=== PATIENT | female | born 1940 ===

== ENCOUNTER 2017-07-22 18:13 | Inpatient (IN) | payer MEDICARE ==
[2017-07-22 19:59] LABS: BASO # 0.1 K/uL (0.0-0.2); MONO # 0.7 K/uL (0.0-0.8)
[2017-07-22 20:02] LABS: ALB/GLOB RATIO 1.4 (1.0-2.1); ALKALINE PHOSPHATASE 62 U/L (38-126); ALT/SGPT 38 U/L (9-52); AST/SGOT 57 U/L (14-36); BILIRUBIN,TOTAL 1.2 mg/dl (0.2-1.3); BLOOD UREA NITROGEN 12 mg/dl (7-17); CALCIUM 9.6 mg/dL (8.4-10.2); CARBON DIOXIDE 26 mmol/L (22-30); CHLORIDE 103 mmol/L (98-107); GFR AFRICAN-AMERICAN > 60; GLUCOSE,RANDOM 102 mg/dL (65-105); SODIUM 141 mmol/l (132-148); TOTAL PROTEIN 7.1 G/DL (6.3-8.2)
[2017-07-22 20:10] LABS: PARTIAL THROMBOPLASTIN TIME 21.4 Seconds (25.6-37.1)
--- NOTE | 2017-07-22 20:10 | ED PDOC ---
Syncope/Near Syncope/Dizziness Time Seen by Provider: 07/22/17 18:22 Chief Complaint (Nursing): Rib Injury Chief Complaint (Provider): fall injury History Per: Patient History/Exam Limitations: no limitations Additional Complaint(s): 77yo F in ED for eval of fall injury-sustained this afternoon. states that while attempting to use her walker which was braced against a wall she fell onto her bottom and then sideways injury to right side of rib . pt does not know why she fell. denies dizziness, headache numbness or tingling in LE, naseuia vomiting head injury or known syncopal episode. 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 PMD: Babb Past Medical History Reviewed: Historical Data, Nursing Documentation, Vital Signs Vital Signs: Last Vital Signs Temp 98.2 F 07/22/17 18:16 Pulse 104 H 07/22/17 18:16 Resp 22 07/22/17 18:16 BP 146/90 07/22/17 18:16 Pulse Ox 99 07/22/17 18:16 - Family History Family History: States: No Known Family Hx - Immunization History Hx Tetanus Toxoid Vaccination: No Hx Influenza Vaccination: No Hx Pneumococcal Vaccination: No - Allergies Allergies/Adverse Reactions: Allergies Allergy/AdvReac Type Severity Reaction Status Date / Time No Known Allergies Allergy Verified 07/22/17 18:15 Review of Systems ROS Statement: Except As Marked, All Systems Reviewed And Found Negative Constitutional: Negative for: Fever, Chills Cardiovascular: Positive for: Other (rib pain). Negative for: Chest Pain, Palpitations Neurological: Negative for: Weakness, Numbness, Incoordination, Change in Speech , Confusion, Seizures, Altered Mental Status, Headache, Dizziness Physical Exam - Reviewed Nursing Documentation Reviewed: Yes Vital Signs Reviewed: Yes - Physical Exam Appears: Positive for: Non-toxic, No Acute Distress, Uncomfortable Head Exam: Positive for: ATRAUMATIC, NORMAL INSPECTION, NORMOCEPHALIC Skin: Positive for: Normal Color, Warm, DRY Eye Exam: Positive for: EOMI, Normal appearance, PERRL ENT: Positive for: Normal ENT Inspection Neck: Positive for: Normal, Painless ROM Cardiovascular/Chest: Positive for: Regular Rate, Rhythm, Other (rib pain with brusing to rib area on the lower right rib area. ) Respiratory: Positive for: CNT, Normal Breath Sounds Gastrointestinal/Abdominal: Positive for: Normal Exam, Bowel Sounds, Soft. Negative for: Tenderness Back: Positive for: Normal Inspection Extremity: Positive for: Normal ROM Neurologic/Psych: Positive for: Alert, substance abuse nurse II-XII (intact), Oriented - ECG O2 Sat by Pulse Oximetry: 99 - Progress ED Course And Treament: due to unknown cause of fall -pt will need CT scan of head and rib xray. pt given tordol for pain control. Orders Category Date Time Status HEAD W/O CONTRAST [CT] Stat CT 07/22/17 19:58 Ordered ELECTROCARDIOGRAM Stat Cardiology 07/22/17 18:47 Ordered CMP [COMP METABOLIC PANEL] Stat Chem 07/22/17 19:18 Received TROPONIN I Stat Chem 07/22/17 19:18 Received EKG-ED [EDNURTX] STAT ED Care 07/22/17 18:50 Active RIBS AND CHEST RT [RAD] Stat Exams 07/22/17 19:58 Ordered CBC (WITH DIFFERENTIAL) Stat PLACIDO 07/22/17 19:18 Received PARTIAL THROMBOPLASTIN TIME [COAG] Stat PLACIDO 07/22/17 19:18 Received PROTHROMBIN TIME [COAG] Stat PLACIDO 07/22/17 19:18 Received Ketorolac [Toradol] Med 07/22/17 19:32 Discontinued 30 mg .ROUTE .STK-MED ONE Ketorolac [Toradol] Med 07/22/17 18:46 Discontinued 30 mg IVP STAT STA Disposition - Clinical Impression Clinical Impression: Rib injury - Patient ED Disposition Is Patient to be Admitted: Transfer of Care - Disposition Disposition Time: 20:12 Condition: FAIR Patient Signed Over To: Suzette Coronado
[2017-07-22 20:12] LABS: HEMATOCRIT 41.9 % (34.0-47.0); MEAN CELL VOLUME 89.5 fl (81.0-99.0); POTASSIUM 4.8 MMOL/L (3.6-5.0); WHITE BLOOD COUNT 10.2 K/uL (4.8-10.8)
[2017-07-22 20:13] LABS: BASO % 1.1 % (0.0-2.0); EOS # 0.4 K/uL (0.0-0.7); EOS % 3.6 % (0.0-4.0); LYMPH # 2.4 K/uL (1.0-4.3); LYMPH % 23.8 % (20.0-40.0); MEAN CORPUSCULAR HGB CONC 33.5 g/dL (33.0-37.0); MONO % 7.2 % (0.0-10.0); NEUT # 6.6 K/uL (1.8-7.0); NEUT % 64.3 % (50.0-75.0); NRBC % 0.1 % (0.0-0.0)
--- NOTE | 2017-07-22 20:44 | ED PDOC ---
- Laboratory Results Result Diagrams: 07/22/17 19:18 07/22/17 19:18 - ECG ECG: Positive for: Viewed By Me (reviewed by ED attending) ECG Rhythm: Positive for: Sinus Rhythm O2 Sat by Pulse Oximetry: 99 - Other Rad chest right ribs X-Ray: Viewed By Me X-Ray Interpretation: no acute findings - Progress ED Course And Treament: Case endorsed to data analyst report writer from Olimpia TAYLOR pending labs, imaging EXAM: CT Head Without Intravenous Contrast EXAM DATE/TIME: 07/22/2017 7:58 PM CLINICAL HISTORY: 77 years old, female; Injury or trauma; Fall; Initial encounter; Concussion / head injury; Consciousness not specified; Injury details: Patient states; She fell today, she walks with a walker; Prior surgery; Surgery date: 6+ months; Surgery type: ? ? ? . No HX. Available; Additional info: Fall injury unkown cause TECHNIQUE: Axial computed tomography images of the head/brain without intravenous contrast. All CT scans at this facility use one or more dose reduction techniques, viz.: automated exposure control; ma/kV adjustment per patient size (including targeted exams where dose is matched to indication; i.e. head); or iterative reconstruction technique. Coronal and sagittal reformatted images were created and reviewed. COMPARISON: CT HEAD OR BRAIN W/O CONT 04/07/2014 1:14:14 PM. Report of the prior study is not available for review. FINDINGS: Brain: There is prominence of sulci gyri and ventricles. There is no midline shift. There is a cavum septum pellucidum.There is decreased attenuation in periventricular white matter. There is left cerebellar encephalomalacia. There are no focal masses. There are no focal hemorrhages. Graywhite differentiation is visualized. Ventricles: See above. Bones: There is an old left temporal craniectomy defect. There is been partial resection of the left temporal bone. Left middle ear and mastoid are surgically absent. Left inner ear structures are absent. Soft tissues: unremarkable Sinuses: There is no acute sinusitis. Ears and mastoids: Right middle ear and mastoid unremarkable. Left middle ear, mastoid and inner ear structures are surgically absent. Orbits: Orbital contents are unremarkable. IMPRESSION: Atrophy and small vessel disease, no bleed; postsurgical changes of partial left temporal bone resection, unchanged since the prior study EXAM: CT Chest Without Intravenous Contrast EXAM DATE/TIME: 07/22/2017 9:06 PM CLINICAL HISTORY: 77 years old, female; Injury or trauma; Fall; Initial encounter; Blunt trauma ( contusions or hematomas); Injury date: 07-22-2017; Injury details: Patient states; Fell while using her walker; Additional info: Fall, right rib pain TECHNIQUE: Axial computed tomography images of the chest without intravenous contrast. All CT scans at this facility use one or more dose reduction techniques, viz.: automated exposure control; ma/kV adjustment per patient size (including targeted exams where dose is matched to indication; i.e. head); or iterative reconstruction technique. Coronal and sagittal reformatted images were created and reviewed. COMPARISON: CR - RIBS AND CHEST RT 07/22/2017 8:27:34 PM FINDINGS: Artifacts: Motion artifact degrades image quality. Lungs and pleural spaces: Trachea and main bronchi are patent.There is no pneumothorax. Lungs are hyperinflated. There is dependent atelectasis. There is scarring at the lung bases. There is mild prominence of the left epicardial fat pad. There are no effusions. Heart: Heart size is normal. There are coronary artery calcifications.Aorta and main pulmonary artery are normal in caliber. There are calcifications in the aortic arch Mediastinum: There is no pneumomediastinum. The esophagus is unremarkable. There is a small hiatal hernia. There is no pathologic mediastinal adenopathy.Khadijah are not optimally evaluated without contrast material. Thyroid: Thyroid is not optimally demonstrated. Bones/joints: Bony structures are osteopenic. There degenerative changes in the spine. Motion limits evaluation of the ribs. There are no displaced rib fractures. There may be a nondisplaced anterior right ninth rib fracture. Soft tissues: unremarkable Upper abdomen: There are no acute abnormalities in the visualized portion of the abdomen. IMPRESSION: No acute intrathoracic injury; no acute displaced rib fracture seen; possible nondisplaced right ninth rib fracture Additional findings as described above. On re-eval, patient still with pain to right side of ribs. IV morphine ordered Case discussed with Marcelino Peter EXHIBITS COORDINATOR for placement in observation tele. Disposition - Clinical Impression Clinical Impression: Rib injury, Syncope - POA Present On Arrival: Falls Or Trauma - Disposition Disposition: Hospitalized as Observation Patient Disposition Time: 23:46 Condition: FAIR
--- NOTE | 2017-07-22 21:30 | CT ---
EXAM: CT Head Without Intravenous Contrast EXAM DATE/TIME: 07/22/2017 7:58 PM CLINICAL HISTORY: 77 years old, female; Injury or trauma; Fall; Initial encounter; Concussion / head injury; Consciousness not specified; Injury details: Patient states; She fell today, she walks with a walker; Prior surgery; Surgery date: 6+ months; Surgery type: ? ? ? . No HX. Available; Additional info: Fall injury unkown cause TECHNIQUE: Axial computed tomography images of the head/brain without intravenous contrast. All CT scans at this facility use one or more dose reduction techniques, viz.: automated exposure control; ma/kV adjustment per patient size (including targeted exams where dose is matched to indication; i.e. head); or iterative reconstruction technique. Coronal and sagittal reformatted images were created and reviewed. COMPARISON: CT HEAD OR BRAIN W/O CONT 04/07/2014 1:14:14 PM. Report of the prior study is not available for review. FINDINGS: Brain: There is prominence of sulci gyri and ventricles. There is no midline shift. There is a cavum septum pellucidum.There is decreased attenuation in periventricular white matter. There is left cerebellar encephalomalacia. There are no focal masses. There are no focal hemorrhages. Martinez-white differentiation is visualized. Ventricles: See above. Bones: There is an old left temporal craniectomy defect. There is been partial resection of the left temporal bone. Left middle ear and mastoid are surgically absent. Left inner ear structures are absent. Soft tissues: unremarkable Sinuses: There is no acute sinusitis. Ears and mastoids: Right middle ear and mastoid unremarkable. Left middle ear, mastoid and inner ear structures are surgically absent. Orbits: Orbital contents are unremarkable. IMPRESSION: Atrophy and small vessel disease, no bleed; postsurgical changes of partial left temporal bone resection, unchanged since the prior study
--- NOTE | 2017-07-22 23:28 | CT ---
EXAM: CT Chest Without Intravenous Contrast EXAM DATE/TIME: 07/22/2017 9:06 PM CLINICAL HISTORY: 77 years old, female; Injury or trauma; Fall; Initial encounter; Blunt trauma (contusions or hematomas); Injury date: 07-22-2017; Injury details: Patient states; Fell while using her walker; Additional info: Fall, right rib pain TECHNIQUE: Axial computed tomography images of the chest without intravenous contrast. All CT scans at this facility use one or more dose reduction techniques, viz.: automated exposure control; ma/kV adjustment per patient size (including targeted exams where dose is matched to indication; i.e. head); or iterative reconstruction technique. Coronal and sagittal reformatted images were created and reviewed. COMPARISON: CR - RIBS AND CHEST RT 07/22/2017 8:27:34 PM FINDINGS: Artifacts: Motion artifact degrades image quality. Lungs and pleural spaces: Trachea and main bronchi are patent.There is no pneumothorax. Lungs are hyperinflated. There is dependent atelectasis. There is scarring at the lung bases. There is mild prominence of the left epicardial fat pad. There are no effusions. Heart: Heart size is normal. There are coronary artery calcifications.Aorta and main pulmonary artery are normal in caliber. There are calcifications in the aortic arch Mediastinum: There is no pneumomediastinum. The esophagus is unremarkable. There is a small hiatal hernia. There is no pathologic mediastinal adenopathy.Khadijah are not optimally evaluated without contrast material. Thyroid: Thyroid is not optimally demonstrated. Bones/joints: Bony structures are osteopenic. There degenerative changes in the spine. Motion limits evaluation of the ribs. There are no displaced rib fractures. There may be a nondisplaced anterior right ninth rib fracture. Soft tissues: unremarkable Upper abdomen: There are no acute abnormalities in the visualized portion of the abdomen. IMPRESSION: No acute intrathoracic injury; no acute displaced rib fracture seen; possible nondisplaced right ninth rib fracture Additional findings as described above.
[2017-07-23] MEDS ORDERED: Levothyroxine 88 MCG TAB PO SCH (06:30)
[2017-07-23] MEDS ORDERED: Oxycodone/Acetaminophen 5/325 mg Tab PO PRN (08:02)
--- NOTE | 2017-07-23 08:05 | CP.PCM.HP ---
History of Present Illness - History of Present Illness History of Present Illness: pt admitted for syncope as pt was standing then fell w/o provokation. sustained r sided rib fx but no head injury. pt has h/o brain surgery and has some dysphagia r/t same. at present w/o complaints except r flank pain in area of rib fx. bw nad imaging noted. Present on Admission - Present on Admission Any Indicators Present on Admission: No Review of Systems - Genitourinary Genitourinary: As Per HPI, Flank Pain - Neurological Neurological: As Per HPI, Syncope Past Patient History - Past Medical History & Family History Past Medical History?: Yes - Past Social History Smoking Status: Never Smoked - CARDIAC Hx Cardiac Disorders: Yes Hx Hypercholesterolemia: Yes - PULMONARY Hx Respiratory Disorders: No - NEUROLOGICAL Hx Neurological Disorder: No - HEENT Hx Deafness: Yes (Left side) - RENAL Hx Chronic Kidney Disease: No - ENDOCRINE/METABOLIC Hx Endocrine Disorders: Yes Hx Hypothyroidism: Yes - HEMATOLOGICAL/ONCOLOGICAL Hx Blood Disorders: No Hx AIDS: No Hx Human Immunodeficiency Virus (HIV): No - INTEGUMENTARY Hx Dermatological Problems: No - MUSCULOSKELETAL/RHEUMATOLOGICAL Hx Musculoskeletal Disorders: Yes Hx Falls: Yes - GASTROINTESTINAL Hx Gastrointestinal Disorders: No - GENITOURINARY/GYNECOLOGICAL Hx Genitourinary Disorders: No - PSYCHIATRIC Hx Psychophysiologic Disorder: No Hx Substance Use: No - SURGICAL HISTORY Hx Surgeries: Yes Other/Comment: Brain tumor removal in 1985 - ANESTHESIA Hx Anesthesia: Yes Hx Anesthesia Reactions: No Hx Malignant Hyperthermia: No Meds Allergies/Adverse Reactions: Allergies Allergy/AdvReac Type Severity Reaction Status Date / Time banana Allergy RASH Verified 07/23/17 05:42 Penicillins Allergy RASH Verified 07/23/17 05:42 Physical Exam - Constitutional Appears: Well, Non-toxic, No Acute Distress - Head Exam Head Exam: ATRAUMATIC, NORMAL INSPECTION, NORMOCEPHALIC - Eye Exam Eye Exam: EOMI, Normal appearance, PERRL Pupil Exam: NORMAL ACCOMODATION, PERRL - ENT Exam ENT Exam: Mucous Membranes Moist, Normal Exam - Neck Exam Neck exam: Positive for: Normal Inspection - Respiratory Exam Respiratory Exam: Clear to Auscultation Bilateral, NORMAL BREATHING PATTERN - Cardiovascular Exam Cardiovascular Exam: REGULAR RHYTHM, RRR, +S1, +S2 - GI/Abdominal Exam GI & Abdominal Exam: Normal Bowel Sounds, Soft. absent: Tenderness - Extremities Exam Extremities exam: Positive for: full ROM, normal capillary refill, normal inspection, pedal pulses present - Back Exam Back exam: NORMAL INSPECTION - Neurological Exam Neurological exam: Alert, CN II-XII Intact, Normal Gait, Oriented x3, Reflexes Normal - Psychiatric Exam Psychiatric exam: Normal Affect, Normal Mood - Skin Skin Exam: Dry, Intact, Normal Color, Warm Results - Vital Signs Recent Vital Signs: Last Vital Signs Temp 97.5 F L 07/23/17 05:01 Pulse 78 07/23/17 05:01 Resp 20 07/23/17 05:01 BP 135/82 07/23/17 05:01 Pulse Ox 97 07/23/17 05:01 - Labs Result Diagrams: 07/22/17 19:18 07/22/17 19:18 Labs: Laboratory Results - last 24 hr 07/22/17 07/22/17 07/22/17 19:18 19:18 19:18 WBC 10.2 RBC 4.66 Hgb 14.0 Hct 41.9 MCV 89.5 MCH 30.0 MCHC 33.5 RDW 13.0 Plt Count 283 MPV 9.0 Neut % (Auto) 64.3 Lymph % (Auto) 23.8 Dent % (Auto) 7.2 Eos % (Auto) 3.6 Baso % (Auto) 1.1 Neut # 6.6 Lymph # 2.4 Dent # 0.7 Eos # 0.4 Baso # 0.1 PT 11.4 INR 1.1 APTT 21.4 L Sodium 141 Potassium 4.8 Chloride 103 Carbon Dioxide 26 Anion Gap 17 BUN 12 Creatinine 0.6 L Est GFR ( Amer) > 60 Est GFR (Non-Af Amer) > 60 Random Glucose 102 Calcium 9.6 Total Bilirubin 1.2 AST 57 H ALT 38 Alkaline Phosphatase 62 Total Creatine Kinase Troponin I < 0.0120 Total Protein 7.1 Albumin 4.2 Globulin 2.9 Albumin/Globulin Ratio 1.4 07/22/17 21:40 WBC RBC Hgb Hct MCV MCH MCHC RDW Plt Count MPV Neut % (Auto) Lymph % (Auto) Dent % (Auto) Eos % (Auto) Baso % (Auto) Neut # Lymph # Dent # Eos # Baso # PT INR APTT Sodium Potassium Chloride Carbon Dioxide Anion Gap BUN Creatinine Est GFR ( Amer) Est GFR (Non-Af Amer) Random Glucose Calcium Total Bilirubin AST ALT Alkaline Phosphatase Total Creatine Kinase 62 Troponin I Total Protein Albumin Globulin Albumin/Globulin Ratio Assessment & Plan (1) Rib fracture Assessment and Plan: pain control deep resps Status: Acute (2) DVT prophylaxis Assessment and Plan: scd nad ae hose ambulation no anticoag r/t fall risk Status: Acute (3) Syncope Assessment and Plan: cardio/neuro trops am labs pending all er labs na dimaging reveiwed tele obs Status: Acute Decision To Admit - Pt Status Changed To: Hospital Disposition Of: Observation - . Bed Request Type: Telemetry Admitting Physician: Roxane Conway
[2017-07-23 08:48] LABS: BASO # 0.1 K/uL (0.0-0.2); BASO % 1.1 % (0.0-2.0); EOS # 0.4 K/uL (0.0-0.7); EOS % 3.8 % (0.0-4.0); HEMATOCRIT 41.1 % (34.0-47.0); LYMPH # 2.7 K/uL (1.0-4.3); MEAN CELL VOLUME 88.5 fl (81.0-99.0); MEAN CORPUSCULAR HEMOGLOBIN 29.8 pg (27.0-31.0); MEAN CORPUSCULAR HGB CONC 33.7 g/dL (33.0-37.0); MEAN PLATELET VOLUME 7.7 fl (7.2-11.7); MONO # 0.8 K/uL (0.0-0.8); MONO % 8.5 % (0.0-10.0); NEUT # 5.4 K/uL (1.8-7.0); NEUT % 57.6 % (50.0-75.0); NRBC % 0.2 % (0.0-0.0); RED CELL DISTRIBUTION WIDTH 13.4 % (11.5-14.5); WHITE BLOOD COUNT 9.4 K/uL (4.8-10.8)
[2017-07-23 09:18] LABS: ALB/GLOB RATIO 1.5 (1.0-2.1); ALKALINE PHOSPHATASE 68 U/L (38-126); ALT/SGPT 33 U/L (9-52); AST/SGOT 29 U/L (14-36); BILIRUBIN,TOTAL 1.6 mg/dl (0.2-1.3); BLOOD UREA NITROGEN 12 mg/dl (7-17); CALCIUM 9.1 mg/dL (8.4-10.2); CARBON DIOXIDE 26 mmol/L (22-30); CHLORIDE 103 mmol/L (98-107); GFR AFRICAN-AMERICAN > 60; GLUCOSE,RANDOM 99 mg/dL (65-105); POTASSIUM 4.3 MMOL/L (3.6-5.0); SODIUM 142 mmol/l (132-148); TOTAL PROTEIN 6.5 G/DL (6.3-8.2)
[2017-07-23 09:45] LABS: THYROID STIMULATING HORMONE 0.44 mIU/ML (0.46-4.68)
--- NOTE | 2017-07-23 12:31 | RAD ---
PROCEDURE: Radiographs of the Chest and Right Ribs. HISTORY: rib injury fall COMPARISON: None available. TECHNIQUE: Frontal radiograph of the chest and multiple oblique radiographs of the right ribs were obtained. FINDINGS: RIGHT RIBS: No fracture or focal lesion visualized. LUNGS: The lungs are hyperinflated and there is peribronchial thickening with chronic changes in both lungs. PLEURA: No pneumothorax or pleural fluid. CARDIOVASCULAR: Normal sized heart. No pulmonary vascular congestion. OTHER FINDINGS: None. IMPRESSION: No acute rib fracture. Clear lungs.
--- NOTE | 2017-07-23 15:53 | US ---
PROCEDURE: Duplex ultrasound of the carotid and vertebral arteries. HISTORY: Syncope COMPARISON: None available. TECHNIQUE: Grayscale and duplex Doppler evaluation of the cervical carotid and vertebral arteries were performed. The common carotid, carotid bifurcations and cervical ICA and proximal ECA were evaluated. The vertebral arteries were evaluated for gross patency and direction. FINDINGS: There are calcified atherosclerotic plaques in the carotid bulbs. RIGHT CAROTID ARTERIES: Common Carotid Artery: Normal. Maximal flow velocity of 72.4 cm/s. Carotid Bifurcation: Normal. Internal Carotid Artery:Normal. Maximal flow velocity of 97.9 cm/s. External Carotid Artery (proximal branches): Normal. Maximal flow velocity of 64.0 cm/s. ICA/CCA Ratio: 1.4 LEFT CAROTID ARTERIES: Common Carotid Artery: Normal. Maximal flow velocity of 69.3 cm/s. Carotid Bifurcation: Normal. Internal Carotid Artery:Normal. Maximal flow velocity of 68.6 cm/s. External Carotid Artery (proximal branches): Normal. Maximal flow velocity of 77.0 cm/s. ICA/CCA Ratio: 1.0 VERTEBRAL ARTERIES: Right Vertebral Artery: Patent. Antegrade flow. Left Vertebral Artery: Patent. Antegrade flow. OTHER FINDINGS: None. IMPRESSION: No evidence of hemodynamically significant stenosis.
--- NOTE | 2017-07-23 16:53 | CON ---
NEUROLOGY CONSULT DATE: 07/23/2017 CHIEF COMPLAINT: Near syncope. 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 She was attempting to use her walker and braced against her dining table and hit the right side and fell on her right side and hurt the right side of her rib. Her CAT of the head showed no acute intracranial abnormality, just postsurgical changes of the partial left temporal bone resection from prior surgery. Currently, no focal weakness of the extremities in terms of being new, has residual right spastic weakness from prior tumor resection and residual dysarthria. She had 8th right side rib fracture and has had some pain. She has had multiple falls in the past. She was mildly dehydrated on labs and is getting hydrated. Otherwise, no acute events overnight. PAST MEDICAL HISTORY: Left temporal lobe brain resection for benign tumor leaving residual left facial weakness as well as right spastic hemiparesis, arthritis, hypertension. ALLERGIES: PENICILLIN. FAMILY HISTORY: Noncontributory. SOCIAL HISTORY: No illicit drug use, smoking, or EtOH abuse. REVIEW OF SYSTEMS: A 14-point review of systems negative except in the HPI. PHYSICAL EXAMINATION: VITAL SIGNS: Temperature 97.3, pulse rate 82, blood pressure 129/71, respiratory rate 20, and oxygen saturation 96% on room air. GENERAL: The patient is sitting up in bed, in no acute distress. HEENT: Head is atraumatic and normocephalic. PERRLA. Extraocular muscles are intact. NECK: Supple. No JVD. No adenopathy noted. LUNGS: Clear to auscultation. No adventitious sounds. HEART: S1 and S2, normal rate and rhythm. No murmurs,rubs, or gallops. ABDOMEN: Soft, nontender, and nondistended. Bowel sounds are present. EXTREMITIES: No clubbing. No cyanosis. Peripheral pulses 2+ bilaterally. NEUROLOGIC: The patient is alert and oriented to person and place, not much to the month or year. Recall after 5 minutes is 0/3. Poor attention span. Slow thought process. Cranial nerves II through XII are intact. Speech has residual dysarthria from prior left temporal lobe brain resection in 1985. Motor exam: Right spastic side weakness, left side is intact. Gait is wide based and needs assistance, so she uses a walker. DTRs are 1+ throughout and absent at the ankles. Coordination: [id number] is intact. Sensory exam: Light touch, pinprick, proprioception, and vibration is intact. LABORATORY DATA: Sodium is 142, potassium 4.3, chloride of 103, carbon dioxide 26, BUN of 12, creatinine 0.7, and random glucose 99. ASSESSMENT AND PLAN: This is a 77-year-old woman with history of brain resection in the left temporal lobe with spastic dysarthria and some mild weakness from prior surgery, hypertension and arthritis, who had fall injury when leaning against the right side of the dinning table and fell on her right side. No loss of consciousness, no syncopal episode, no palpitations prior to the event. At this time, I feel like her gait instability is secondary to ongoing deconditioned state from residual arthritis and deconditioned state from prior brain tumor resection in the 1985. At this time, we recommend; 1. Subacute rehab, physical therapy and occupational therapy evaluation. 2. Orthostatic vital signs. 3. Adequate hydration. 4. Aspirin 81 mg for stroke prevention. At this time, continue current present medical management. She is clinically stable from my standpoint. Raheem Cooney MD
--- NOTE | 2017-07-23 18:48 | CARD ---
APPROVED REPORT EXAM: Two-dimensional and M-mode echocardiogram with Doppler and color Doppler. Other Information Quality : AverageRhythm : NSR INDICATION Syncope 2D DIMENSIONS IVSd0.96 (0.7-1.1cm)LVDd3.64 (3.9-5.9cm) LVOT Diameter1.81 (1.8-2.4cm)PWd0.66 (0.7-1.1cm) IVSs1.48 (0.8-1.2cm)LVDs2.36 (2.5-4.0cm) FS (%) 35.2 %PWs0.93 (0.8-1.2cm) LVEF (%)55.0 (>50%) M-Mode DIMENSIONS Left Atrium (MM)3.03 (2.5-4.0cm)IVSd1.29 (0.7-1.1cm) Aortic Root2.71 (2.2-3.7cm)LVDd3.47 (4.0-5.6cm) Aortic Cusp Exc.1.82 (1.5-2.0cm)PWd1.21 (0.7-1.1cm) IVSs1.75 cmFS (%) 52 % LVDs1.67 (2.0-3.8cm)PWs1.62 cm Mitral Valve MV E Nnqjshwv60.7cm/sMV DECEL PFWZ130icVD A Dxxalzix97.7cm/s MV UWY24fmV/A ratio1.2MVA (PHT)3.16cm2 TDI Lateral E' Peak V9.53cm/sMedial E' Peak V8.15cm/sE/Lateral E'7.3 E/Medial E'8.6 LEFT VENTRICLE The left ventricle is normal size. There is normal left ventricular wall thickness. The left ventricular function is normal. The left ventricular ejection fraction is within the normal range. There is normal LV segmental wall motion. Transmitral Doppler flow pattern is Grade I-abnormal relaxation pattern. RIGHT VENTRICLE The right ventricle is normal size. There is normal right ventricular wall thickness. The right ventricular systolic function is normal. ATRIA The left atrium size is normal. The right atrium size is normal. AORTIC VALVE The aortic valve is not well visualized. No aortic regurgitation is present. There is no aortic valvular stenosis. MITRAL VALVE The mitral valve is not well visualized. There is no mitral valve stenosis. There is no mitral valve regurgitation noted. TRICUSPID VALVE The tricuspid valve is normal in structure and function. There is no tricuspid valve regurgitation noted. PULMONIC VALVE The pulmonary valve is normal in structure and function. There is no pulmonic valvular regurgitation. GREAT VESSELS The aortic root is normal in size. The IVC collapses <50% with inspiration. PERICARDIAL EFFUSION The pericardium appears normal. <Conclusion> The left ventricle is normal size. There is normal left ventricular wall thickness. The left ventricular function is normal. The left ventricular ejection fraction is within the normal range. There is normal LV segmental wall motion. Transmitral Doppler flow pattern is Grade I-abnormal relaxation pattern.
--- NOTE | 2017-07-23 19:50 | CP.PCM.CON ---
History of Present Illness - History of Present Illness History of Present Illness: I was asked to see patient by Luis Conway and [place] Patient is a 77 year old female with a previous history of brain surgery who is s/p fall. According to the record the patient was standing when she felt dizzy and fell. The patient denies chest pain or dyspnea. She appears comfortable. Blood pressure is controlled. Review of Systems - Constitutional Constitutional: absent: As Per HPI, Anorexia, Chills, Daytime Sleepiness, Excessive Sweating, Fatigue, Fever, Frequent Falls, Headache, Increased Appetite , Lethargy, Malaise, Night Sweats, Snoring, Sleep Apnea, Weight Gain, Weight Loss, Weakness, Other - EENT Eyes: absent: As Per HPI, Blind Spots, Blurred Vision, Change in Vision, Decreased Night Vision, Diplopia, Discharge, Dry Eye, Exophthalmos, Floaters, Irritation, Itchy Eyes, Loss of Peripheral Vision, Pain, Photophobia, Requires Corrective Lenses, Sees Flashes, Spots in Vision, Tunnel Vision, Other Visual Disturbances, Loss of Vision, Other Ears: absent: As Per HPI, Decreased Hearing, Ear Discharge, Ear Pain, Tinnitus, Abnormal Hearing, Disequilibrium, Dizziness, Other Nose/Mouth/Throat: absent: As Per HPI, Epistaxis, Nasal Congestion, Nasal Discharge, Nasal Obstruction, Nasal Trauma, Nose Pain, Post Nasal Drip, Sinus Pain, Sinus Pressure, Bleeding Gums, Change in Voice, Dental Pain, Dry Mouth, Dysphagia, Halitosis, Hoarsness, Lip Swelling, Mouth Lesions, Mouth Pain, Odynophagia, Sore Throat, Throat Swelling, Tongue Swelling, Facial Pain, Neck Pain, Neck Mass, Other - Cardiovascular Cardiovascular: absent: As Per HPI, Acrocyanosis, Chest Pain, Chest Pain at Rest , Chest Pain with Activity, Claudication, Diaphoresis, Dyspnea, Dyspnea on Exertion, Edema, Irregular Heart Rhythm, Pain Radiating to Arm/Neck/Jaw, Leg Edema, Leg Ulcers, Lightheadedness, Orthopnea, Palpitations, Paroxysmal Nocturnal Dyspnea, Pedal Edema, Radiating Pain, Rapid Heart Rate, Slow Heart Rate, Syncope, Other - Respiratory Respiratory: absent: As Per HPI, Cough, Dyspnea, Hemoptysis, Dyspnea on Exertion , Wheezing, Snoring, Stridor, Pain on Inspiration, Chest Congestion, Excessive Mucous Production, Change in Mucous Color, Pain with Coughing, Other - Gastrointestinal Gastrointestinal: absent: As Per HPI, Abdominal Pain, Belching, Bloating, Change in Bowel Habits, Change in Stool Character, Coffee Ground Emesis, Constipation, Cramping, Diarrhea, Dyspepsia, Dysphagia, Early Satiety, Excessive Flatus, Fecal Incontinence, Heartburn, Hematemesis, Hematochezia, Loose Stools, Melena, Nausea, Odynophagia, Temesmus, Vomiting, Other - Musculoskeletal Musculoskeletal: absent: As Per HPI, Abnormal Gait, Arthralgias, Atrophy, Back Pain, Deformity, Joint Swelling, Limited Range of Motion, Loss of Height, Muscle Cramps, Muscle Weakness, Myalgias, Neck Pain, Numbness, Radiating Pain into Limb, Stiffness, Tingling, Other - Integumentary Integumentary: absent: As Per HPI, Acne, Alopecia, Bleeding Lesions, Change in Hair, Change in Nails, Change in Pigmentation, Changing Lesions, Dry Skin, Erythema, Furuncle, Hirsutism, Lesions, New Lesions, Non-Healing Lesions, Photosensitivity, Pruritus, Rash, Skin Pain, Skin Ulcer, Sores, Striae, Swelling , Unusual Bruising, Wounds, Jaundice, Other - Neurological Neurological: absent: As Per HPI, Abnormal Gait, Abnormal Hearing, Abnormal Movements, Abnormal Speech, Behavioral Changes, Burning Sensations, Confusion, Convulsions, Disequilibrium, Dizziness, Numbness, Focal Weakness, Frequent Falls , Headaches, Lack of Coordination, Loss of Vision, Memory Loss, Paresthesias, Radicular Pain, Restless Legs, Sensory Deficit, Syncope, Tingling, Tremor, Vertigo, Weakness, Other Visual Disturbances, Other - Psychiatric Psychiatric: absent: As Per HPI, Abnormal Sleep Pattern, Anhedonia, Anxiety, Auditory Hallucinations, Behavioral Changes, Change in Appetite, Change in Libido, Confusion, Depression, Difficulty Concentrating, Hallucinations, Homicidal Ideation, Hopelessness, Irritability, Memory Loss, Mood Swings, Panic Attacks, Paranoia, Suicidal Ideation, Visual Hallucinations, Tactile Hallucinations, Other - Endocrine Endocrine: absent: As Per HPI, Change in Body Appearance, Change in Libido, Cold Intolorance, Deepening of Voice, Excessive Sweating, Fatigue, Flushing, Heat Intolorance, Increase in Ring/Shoe/Hat Size, Palpitations, Polydipsia, Polyphagia, Polyuria, Other - Hematologic/Lymphatic Hematologic: absent: As Per HPI, Easy Bleeding, Easy Bruising, Lymphadenopathy, Other Past Patient History - Past Medical History & Family History Past Medical History?: Yes - Past Social History Smoking Status: Never Smoked - CARDIAC Hx Cardiac Disorders: Yes Hx Hypercholesterolemia: Yes - PULMONARY Hx Respiratory Disorders: No - NEUROLOGICAL Hx Neurological Disorder: No - HEENT Hx Deafness: Yes (Left side) - RENAL Hx Chronic Kidney Disease: No - ENDOCRINE/METABOLIC Hx Endocrine Disorders: Yes Hx Hypothyroidism: Yes - HEMATOLOGICAL/ONCOLOGICAL Hx Blood Disorders: No Hx AIDS: No Hx Human Immunodeficiency Virus (HIV): No - INTEGUMENTARY Hx Dermatological Problems: No - MUSCULOSKELETAL/RHEUMATOLOGICAL Hx Musculoskeletal Disorders: Yes Hx Falls: Yes - GASTROINTESTINAL Hx Gastrointestinal Disorders: No - GENITOURINARY/GYNECOLOGICAL Hx Genitourinary Disorders: No - PSYCHIATRIC Hx Psychophysiologic Disorder: No Hx Substance Use: No - SURGICAL HISTORY Hx Surgeries: Yes Other/Comment: Brain tumor removal in 1985 - ANESTHESIA Hx Anesthesia: Yes Hx Anesthesia Reactions: No Hx Malignant Hyperthermia: No Meds Allergies/Adverse Reactions: Allergies Allergy/AdvReac Type Severity Reaction Status Date / Time banana Allergy RASH Verified 07/23/17 05:42 Penicillins Allergy RASH Verified 07/23/17 05:42 - Medications Medications: Current Medications Ibuprofen (Motrin Tab) 600 mg PO Q6 PRN PRN Reason: Pain, moderate (4-7) Last Admin: 07/23/17 11:53 Dose: 600 mg Ketorolac Tromethamine (Toradol) 30 mg IVP Q6 PRN PRN Reason: Pain, moderate (4-7) Last Admin: 07/23/17 18:45 Dose: 30 mg Levothyroxine Sodium (Synthroid) 75 mcg PO DAILY@0630 [facility] Oxycodone/Acetaminophen (Percocet 5/325 Mg Tab) 1 tab PO Q4 PRN PRN Reason: Pain, severe (8-10) Stop: 07/26/17 08:03 Physical Exam - Constitutional Appears: Non-toxic - Head Exam Head Exam: NORMAL INSPECTION - Eye Exam Eye Exam: Normal appearance - ENT Exam ENT Exam: Mucous Membranes Moist - Neck Exam Neck exam: Positive for: Full Rom - Respiratory Exam Respiratory Exam: NORMAL BREATHING PATTERN - Cardiovascular Exam Cardiovascular Exam: REGULAR RHYTHM - GI/Abdominal Exam GI & Abdominal Exam: Normal Bowel Sounds - Rectal Exam Rectal Exam: Deferred - Extremities Exam Extremities exam: Positive for: normal inspection - Back Exam Back exam: NORMAL INSPECTION - Neurological Exam Neurological exam: Alert, Oriented x3 - Psychiatric Exam Psychiatric exam: Normal Affect - Skin Skin Exam: Normal Color Results - Vital Signs Recent Vital Signs: Last Vital Signs Temp 97.8 F 07/23/17 15:36 Pulse 79 07/23/17 15:36 Resp 20 07/23/17 15:36 BP 145/80 07/23/17 15:36 Pulse Ox 99 07/23/17 15:36 - Labs Result Diagrams: 07/23/17 07:40 07/23/17 07:40 Labs: Laboratory Results - last 24 hr 07/22/17 07/22/17 07/22/17 19:18 19:18 19:18 WBC 10.2 RBC 4.66 Hgb 14.0 Hct 41.9 MCV 89.5 MCH 30.0 MCHC 33.5 RDW 13.0 Plt Count 283 MPV 9.0 Neut % (Auto) 64.3 Lymph % (Auto) 23.8 [place] % (Auto) 7.2 Eos % (Auto) 3.6 Baso % (Auto) 1.1 Neut # 6.6 Lymph # 2.4 [place] # 0.7 Eos # 0.4 Baso # 0.1 PT 11.4 INR 1.1 APTT 21.4 L Sodium 141 Potassium 4.8 Chloride 103 Carbon Dioxide 26 Anion Gap 17 BUN 12 Creatinine 0.6 L Est GFR ( Amer) > 60 Est GFR (Non-Af Amer) > 60 Random Glucose 102 Calcium 9.6 Total Bilirubin 1.2 AST 57 H ALT 38 Alkaline Phosphatase 62 Total Creatine Kinase Troponin I < 0.0120 Total Protein 7.1 Albumin 4.2 Globulin 2.9 Albumin/Globulin Ratio 1.4 TSH 3rd Generation 07/22/17 07/23/17 07/23/17 21:40 07:40 07:40 WBC 9.4 RBC 4.64 Hgb 13.8 Hct 41.1 MCV 88.5 MCH 29.8 MCHC 33.7 RDW 13.4 Plt Count 283 MPV 7.7 Neut % (Auto) 57.6 Lymph % (Auto) 29.0 [place] % (Auto) 8.5 Eos % (Auto) 3.8 Baso % (Auto) 1.1 Neut # 5.4 Lymph # 2.7 [place] # 0.8 Eos # 0.4 Baso # 0.1 PT INR APTT Sodium 142 Potassium 4.3 Chloride 103 Carbon Dioxide 26 Anion Gap 16 BUN 12 Creatinine 0.7 Est GFR ( Amer) > 60 Est GFR (Non-Af Amer) > 60 Random Glucose 99 Calcium 9.1 Total Bilirubin 1.6 H AST 29 ALT 33 Alkaline Phosphatase 68 Total Creatine Kinase 62 Troponin I < 0.0120 Total Protein 6.5 Albumin 3.9 Globulin 2.6 Albumin/Globulin Ratio 1.5 TSH 3rd Generation 0.44 L - EKG Data EKG Interpreted by: Myself EKG shows normal: Sinus rhythm Assessment & Plan (1) Syncope Assessment and Plan: likely mechaincial. There have been no events on telemetry thus far. The left ventricular function is normal. I recommend continued neuro eval. Status: Acute (2) HTN (hypertension) Assessment and Plan: blood pressure control Status: Acute
[2017-07-24 05:54] LABS: BASO # 0.1 K/uL (0.0-0.2); BASO % 1.4 % (0.0-2.0); EOS # 0.5 K/uL (0.0-0.7); EOS % 5.2 % (0.0-4.0); HEMATOCRIT 38.6 % (34.0-47.0); LYMPH # 2.3 K/uL (1.0-4.3); LYMPH % 24.8 % (20.0-40.0); MEAN CORPUSCULAR HEMOGLOBIN 29.7 pg (27.0-31.0); MEAN CORPUSCULAR HGB CONC 33.3 g/dL (33.0-37.0); MEAN PLATELET VOLUME 7.8 fl (7.2-11.7); MONO # 0.8 K/uL (0.0-0.8); MONO % 8.3 % (0.0-10.0); NEUT # 5.5 K/uL (1.8-7.0); NEUT % 60.3 % (50.0-75.0); NRBC % 0.1 % (0.0-0.0); RED CELL DISTRIBUTION WIDTH 13.2 % (11.5-14.5); WHITE BLOOD COUNT 9.1 K/uL (4.8-10.8)
[2017-07-24 06:14] LABS: ALB/GLOB RATIO 1.4 (1.0-2.1); ALKALINE PHOSPHATASE 61 U/L (38-126); ALT/SGPT 34 U/L (9-52); AST/SGOT 43 U/L (14-36); BLOOD UREA NITROGEN 10 mg/dl (7-17); CALCIUM 8.8 mg/dL (8.4-10.2); CARBON DIOXIDE 25 mmol/L (22-30); GFR AFRICAN-AMERICAN > 60; GLUCOSE,RANDOM 111 mg/dL (65-105); POTASSIUM 4.5 MMOL/L (3.6-5.0); SODIUM 137 mmol/l (132-148); TOTAL PROTEIN 6.1 G/DL (6.3-8.2)
[2017-07-24 06:20] LABS: CHLORIDE 101 mmol/L (98-107)
[2017-07-24] MEDS ORDERED: Levothyroxine 75 MCG TAB PO SCH (06:30)
--- NOTE | 2017-07-24 07:09 | CP.PCM.PN ---
Subjective - Date & Time of Evaluation Date of Evaluation: 07/24/17 Time of Evaluation: 07:09 - Subjective Subjective: no further syncope. all imaging noted. consults appriciated. pt for tasha. bw noted Objective - Vital Signs/Intake and Output Vital Signs (last 24 hours): Temp Pulse Resp BP Pulse Ox 97.5 F L 71 20 131/82 99 07/24/17 04:57 07/24/17 04:57 07/24/17 04:57 07/24/17 04:57 07/24/17 04:57 - Medications Medications: Current Medications Ibuprofen (Motrin Tab) 600 mg PO Q6 PRN PRN Reason: Pain, moderate (4-7) Last Admin: 07/23/17 11:53 Dose: 600 mg Ketorolac Tromethamine (Toradol) 30 mg IVP Q6 PRN PRN Reason: Pain, moderate (4-7) Last Admin: 07/24/17 00:54 Dose: 30 mg Levothyroxine Sodium (Synthroid) 75 mcg PO DAILY@0630 [facility] Last Admin: 07/24/17 06:14 Dose: 75 mcg Oxycodone/Acetaminophen (Percocet 5/325 Mg Tab) 1 tab PO Q4 PRN PRN Reason: Pain, severe (8-10) Stop: 07/26/17 08:03 - Labs Labs: 07/24/17 05:00 07/24/17 05:00 PT 11.4 Seconds (9.8-13.1) 07/22/17 19:18 INR 1.1 (0.9-1.2) 07/22/17 19:18 APTT 21.4 Seconds (25.6-37.1) L 07/22/17 19:18 - Constitutional Appears: Well, Non-toxic, No Acute Distress - Head Exam Head Exam: ATRAUMATIC, NORMAL INSPECTION, NORMOCEPHALIC - Eye Exam Eye Exam: EOMI, Normal appearance, PERRL Pupil Exam: NORMAL ACCOMODATION, PERRL - ENT Exam ENT Exam: Mucous Membranes Moist, Normal Exam - Neck Exam Neck Exam: Full ROM, Normal Inspection. absent: Lymphadenopathy - Respiratory Exam Respiratory Exam: Clear to Ausculation Bilateral, NORMAL BREATHING PATTERN Additional comments: r chest wall tenderness to plap/deep resp - Cardiovascular Exam Cardiovascular Exam: REGULAR RHYTHM, RRR, +S1, +S2. absent: Murmur - GI/Abdominal Exam GI & Abdominal Exam: Soft, Normal Bowel Sounds. absent: Tenderness - Extremities Exam Extremities Exam: Full ROM, Normal Capillary Refill, Normal Inspection. absent : Joint Swelling, Pedal Edema - Back Exam Back Exam: NORMAL INSPECTION - Neurological Exam Neurological Exam: Alert, Awake, CN II-XII Intact, Normal Gait, Oriented x3 - Psychiatric Exam Psychiatric exam: Normal Affect, Normal Mood - Skin Skin Exam: Dry, Intact, Normal Color, Warm Assessment and Plan (1) Rib fracture Status: Acute (2) DVT prophylaxis Status: Acute (3) Syncope Status: Acute - Assessment and Plan (Free Text) Assessment: (1) Rib fracture Assessment and Plan: pain control deep resps Status: Acute (2) DVT prophylaxis Assessment and Plan: scd nad ae hose ambulation no anticoag r/t fall risk Status: Acute (3) Syncope Assessment and Plan: no obv cardio/neuro abnormalities on imaging. for tasha downgrade cont to be followed by cardio/neuro all studies noted Status: Acute
[2017-07-24] MEDS ORDERED: Lactulose 10 gm/15 ml Syrup PO PRN (07:55)
[2017-07-24 07:56] VITALS: RESP 16
--- NOTE | 2017-07-24 10:23 | CARD ---
APPROVED REPORT EKG Measurement Heart [id number] <Conclusion> Normal sinus rhythm Normal ECG
[2017-07-24 16:32] VITALS: BP 136/77; PULSE 86; TEMP 98; O2SAT 98
--- NOTE | 2017-07-24 18:06 | CP.PCM.DIS ---
Provider - Provider Date of Admission: 07/23/17 19:13 Attending physician: Roxane Conway MD Time Spent in preparation of Discharge (in minutes): 15 Diagnosis - Discharge Diagnosis (1) Rib fracture Status: Acute (2) DVT prophylaxis Status: Acute (3) Syncope Status: Acute Hospital Course - Lab Results Lab Results: Most Recent Lab Values WBC 9.1 K/uL (4.8-10.8) 07/24/17 05:00 RBC 4.34 Mil/uL (3.80-5.20) 07/24/17 05:00 Hgb 12.9 g/dL (12.0-16.0) 07/24/17 05:00 Hct 38.6 % (34.0-47.0) 07/24/17 05:00 MCV 89.0 fl (81.0-99.0) 07/24/17 05:00 MCH 29.7 pg (27.0-31.0) 07/24/17 05:00 MCHC 33.3 g/dL (33.0-37.0) 07/24/17 05:00 RDW 13.2 % (11.5-14.5) 07/24/17 05:00 Plt Count 265 K/uL (130-400) 07/24/17 05:00 MPV 7.8 fl (7.2-11.7) 07/24/17 05:00 Neut % (Auto) 60.3 % (50.0-75.0) 07/24/17 05:00 Lymph % (Auto) 24.8 % (20.0-40.0) 07/24/17 05:00 [place] % (Auto) 8.3 % (0.0-10.0) 07/24/17 05:00 Eos % (Auto) 5.2 % (0.0-4.0) H 07/24/17 05:00 Baso % (Auto) 1.4 % (0.0-2.0) 07/24/17 05:00 Neut # 5.5 K/uL (1.8-7.0) 07/24/17 05:00 Lymph # 2.3 K/uL (1.0-4.3) 07/24/17 05:00 [place] # 0.8 K/uL (0.0-0.8) 07/24/17 05:00 Eos # 0.5 K/uL (0.0-0.7) 07/24/17 05:00 Baso # 0.1 K/uL (0.0-0.2) 07/24/17 05:00 PT 11.4 Seconds (9.8-13.1) 07/22/17 19:18 INR 1.1 (0.9-1.2) 07/22/17 19:18 APTT 21.4 Seconds (25.6-37.1) L 07/22/17 19:18 Sodium 137 mmol/l (132-148) 07/24/17 05:00 Potassium 4.5 MMOL/L (3.6-5.0) 07/24/17 05:00 Chloride 101 mmol/L (98-107) 07/24/17 05:00 Carbon Dioxide 25 mmol/L (22-30) 07/24/17 05:00 Anion Gap 16 (10-20) 07/24/17 05:00 BUN 10 mg/dl (7-17) 07/24/17 05:00 Creatinine 0.6 mg/dL (0.7-1.2) L 07/24/17 05:00 Est GFR ( Amer) > 60 07/24/17 05:00 Est GFR (Non-Af Amer) > 60 07/24/17 05:00 Random Glucose 111 mg/dL (65-105) H 07/24/17 05:00 Calcium 8.8 mg/dL (8.4-10.2) 07/24/17 05:00 Total Bilirubin 2.0 mg/dl (0.2-1.3) H 07/24/17 05:00 AST 43 U/L (14-36) H D 07/24/17 05:00 ALT 34 U/L (9-52) 07/24/17 05:00 Alkaline Phosphatase 61 U/L (38-126) 07/24/17 05:00 Total Creatine Kinase 62 U/L (30-135) 07/22/17 21:40 Troponin I < 0.0120 ng/mL (0.00-0.120) 07/23/17 07:40 Total Protein 6.1 G/DL (6.3-8.2) L 07/24/17 05:00 Albumin 3.5 g/dL (3.5-5.0) 07/24/17 05:00 Globulin 2.6 gm/dL (2.2-3.9) 07/24/17 05:00 Albumin/Globulin Ratio 1.4 (1.0-2.1) 07/24/17 05:00 TSH 3rd Generation 0.44 mIU/ML (0.46-4.68) L 07/23/17 07:40 Discharge Exam - Head Exam Head Exam: ATRAUMATIC, NORMAL INSPECTION, NORMOCEPHALIC Discharge Plan - Follow Up Plan Condition: FAIR Disposition: REHAB FACILITY/REHAB UNIT Instructions: Rib Fracture (DC), Syncope (DC) Additional Instructions: pt for dc to [facility]. no complaints excpet rib pain. final dx- fall, rib fx med sper med rec, rted prn, Referrals: Raheem Cooney MD [Staff Provider] - Raymond Urbina MD [Staff Provider] -
== END 2017-07-24 18:23 | DRG 312 ==
LOC: H.ER 18:13 → H.ERHOLD 23:43 → H.TEL 07-23 02:50 → OBSVTOIN 07-23 19:13
PROVIDERS: ADMIT Family Medicine; ATTEND Family Medicine
DX: R55 Syncope and collapse (principal); G81.11 Spastic hemiplegia affecting right dominant side; E86.0 Dehydration; S22.31XA Fracture of one rib, right side, initial encounter for closed fracture; W18.39XA Other fall on same level, initial encounter; I10 Essential (primary) hypertension; Z88.0 Allergy status to penicillin; Z91.018 Allergy to other foods; Y92.9 Unspecified place or not applicable; M19.90 Unspecified osteoarthritis, unspecified site; Z86.011 Personal history of benign neoplasm of the brain; E03.9 Hypothyroidism, unspecified; R47.1 Dysarthria and anarthria

== ENCOUNTER 2018-02-12 22:29 | Inpatient (IN) | payer MEDICARE ==
--- NOTE | 2018-02-12 23:18 | ED PDOC ---
HPI: SOB/CHF/COPD Time Seen by Provider: 02/12/18 22:40 Chief Complaint (Nursing): Shortness Of Breath Chief Complaint (Provider): sob History Per: Patient Additional Complaint(s): 77 f with history of asthma and stroke (l sided facial paralysis) with history of asthma presenting with shortness of breath since 6p mtonight. no fever/ vomiting/diarrhea. 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 - Social History Current smoker - smoking cessation education provided: No Alcohol: None Drugs: Denies - Immunization History Hx Tetanus Toxoid Vaccination: No Hx Influenza Vaccination: No Hx Pneumococcal Vaccination: No - Home Medications Home Medications: Ambulatory Orders Medication Instructions Recorded Aspirin [Ecotrin] 81 mg PO DAILY #0 tabec 07/24/17 Ibuprofen [Motrin Tab] 600 mg PO Q6 PRN tab 07/24/17 Levothyroxine [Synthroid] 75 mcg PO DAILY@0630 tab 07/24/17 Albuterol Sulfate [Ventolin Hfa] 1 puff IH Q4 PRN #1 unit 02/14/18 Azithromycin [Zithromax] 250 mg PO DAILY #3 tab 02/14/18 Promethazine DM [Phenergan DM 5 ml PO Q6 PRN #250 ml 02/14/18 Syrup] predniSONE [predniSONE Tab] 50 mg PO DAILY #3 tab 02/14/18 - Allergies Allergies/Adverse Reactions: Allergies Allergy/AdvReac Type Severity Reaction Status Date / Time banana Allergy RASH Verified 02/12/18 22:35 Penicillins Allergy RASH Verified 02/12/18 22:35 Review of Systems ROS Statement: Except As Marked, All Systems Reviewed And Found Negative Respiratory: Positive for: Cough, Shortness of Breath Physical Exam - Reviewed Nursing Documentation Reviewed: Yes Vital Signs Reviewed: Yes - Physical Exam Appears: Positive for: Well, Non-toxic, No Acute Distress Head Exam: Positive for: ATRAUMATIC, NORMAL INSPECTION, NORMOCEPHALIC Skin: Positive for: Normal Color, Warm, DRY Eye Exam: Positive for: EOMI Neck: Positive for: Normal, Painless ROM Cardiovascular/Chest: Positive for: Regular Rate, Rhythm Respiratory: Positive for: CNT, Normal Breath Sounds Gastrointestinal/Abdominal: Positive for: Normal Exam, Soft Back: Positive for: Normal Inspection Extremity: Positive for: Normal ROM Neurologic/Psych: Positive for: Alert, Oriented - Laboratory Results Result Diagrams: 02/13/18 08:20 02/13/18 08:20 - ECG O2 Sat by Pulse Oximetry: 100 Medical Decision Making Medical Decision Making: shortness of breath rule out penumonia rule out asthma exacerbation Disposition - Clinical Impression Clinical Impression: Dyspnea - Patient ED Disposition Is Patient to be Admitted: Transfer of Care Counseled Patient/Family Regarding: Studies Performed, Diagnosis - Disposition Disposition: Transfer of Care Disposition Time: 23:00 Condition: FAIR Patient Signed Over To: Luis Enrique Mariee
[2018-02-12] MEDS ORDERED: Albuterol 0.083% Inhal Sol (2.5 mg/3 mL) UD INH ONE (23:23)
[2018-02-12 23:34] LABS: BASO # 0.1 K/uL (0.0-0.2); EOS # 0.2 K/uL (0.0-0.7); EOS % 1.3 % (0.0-4.0); HEMOGLOBIN 14.7 g/dL (12.0-16.0); LYMPH # 2.3 K/uL (1.0-4.3); LYMPH % 17.8 % (20.0-40.0); MEAN CELL VOLUME 88.3 fl (81.0-99.0); MEAN CORPUSCULAR HEMOGLOBIN 29.6 pg (27.0-31.0); MEAN CORPUSCULAR HGB CONC 33.5 g/dL (33.0-37.0); MEAN PLATELET VOLUME 8.1 fl (7.2-11.7); MONO # 0.7 K/uL (0.0-0.8); MONO % 5.1 % (0.0-10.0); NEUT # 9.7 K/uL (1.8-7.0); NEUT % 74.8 % (50.0-75.0); NRBC % 0.1 % (0.0-0.0); RBC 4.97 Mil/uL (3.80-5.20); RED CELL DISTRIBUTION WIDTH 13.4 % (11.5-14.5); WHITE BLOOD COUNT 12.9 K/uL (4.8-10.8)
[2018-02-13 00:34] LABS: B-TYPE NATRIURETIC PEPTIDE 104 pg/ml (0-900); BLOOD UREA NITROGEN 8 mg/dl (7-17); CALCIUM 9.5 mg/dL (8.4-10.2); GFR AFRICAN-AMERICAN > 60; GFR NON-AFRICAN AMERICAN > 60
--- NOTE | 2018-02-13 01:06 | ED PDOC ---
- Laboratory Results Result Diagrams: 02/12/18 23:30 02/12/18 23:30 - ECG O2 Sat by Pulse Oximetry: 100 Medical Decision Making Medical Decision Making: Time: 0000 Patient endorsed to me by Dr. Ernst pending workup Time: 0105 Labs wnl, no significant findings on CXR. Given age and complaint, will place in Tele OBS for cardiac monitoring and further testing. Scribe Attestation: Documented by Arielle Castelan, acting as a scribe for Dr. Luis Enrique Mariee MD. Provider Scribe Attestation: All medical record entries made by the Scribe were at my direction and personally dictated by me. I have reviewed the chart and agree that the record accurately reflects my personal performance of the history, physical exam, medical decision making, and the department course for this patient. I have also personally directed, reviewed, and agree with the discharge instructions and disposition. Disposition - Clinical Impression Clinical Impression: Dyspnea - POA Present On Arrival: None - Disposition Disposition: Hospitalized as Observation Patient Disposition Time: 01:00 Condition: FAIR
[2018-02-13] MEDS ORDERED: Albuterol-Ipratrop 3 mg / 0.5 (3 ml) UD INH STA (01:39)
[2018-02-13] MEDS ORDERED: Albuterol 0.083% Inhal Sol (2.5 mg/3 mL) UD ONE (01:47)
[2018-02-13] MEDS ORDERED: Albuterol-Ipratrop 3 mg / 0.5 (3 ml) UD INH PRN (06:41)
--- NOTE | 2018-02-13 07:23 | CP.PCM.HP ---
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 no f/c, n/v/d. pt has had cough x 1 wk. 1 previous admission for syncope. has h/o asthma. all bw and imaging noted Present on Admission - Present on Admission Any Indicators Present on Admission: No Review of Systems - Cardiovascular Cardiovascular: As Per HPI - Respiratory Respiratory: As Per HPI, Cough, Dyspnea on Exertion Past Patient History - Past Medical History & Family History Past Medical History?: Yes - Past Social History Smoking Status: Never Smoked - CARDIAC Hx Cardiac Disorders: No - PULMONARY Hx Respiratory Disorders: No - NEUROLOGICAL Hx Neurological Disorder: No - HEENT Hx Deafness: Yes (Left side) - RENAL Hx Chronic Kidney Disease: No - ENDOCRINE/METABOLIC Hx Hypothyroidism: Yes - HEMATOLOGICAL/ONCOLOGICAL Hx AIDS: No Hx Human Immunodeficiency Virus (HIV): No - INTEGUMENTARY Hx Dermatological Problems: No - MUSCULOSKELETAL/RHEUMATOLOGICAL Hx Musculoskeletal Disorders: Yes Hx Falls: Yes - GASTROINTESTINAL Hx Gastrointestinal Disorders: No - GENITOURINARY/GYNECOLOGICAL Hx Genitourinary Disorders: No - PSYCHIATRIC Hx Psychophysiologic Disorder: No Hx Substance Use: No - SURGICAL HISTORY Hx Surgeries: Yes Other/Comment: Brain tumor removal in 1985 - ANESTHESIA Hx Anesthesia: Yes Hx Anesthesia Reactions: No Hx Malignant Hyperthermia: No Meds Allergies/Adverse Reactions: Allergies Allergy/AdvReac Type Severity Reaction Status Date / Time banana Allergy RASH Verified 02/12/18 22:35 Penicillins Allergy RASH Verified 02/12/18 22:35 Physical Exam - Constitutional Appears: Well, Non-toxic, No Acute Distress - Head Exam Head Exam: ATRAUMATIC, NORMAL INSPECTION, NORMOCEPHALIC - Eye Exam Eye Exam: EOMI, Normal appearance, PERRL Pupil Exam: NORMAL ACCOMODATION, PERRL - ENT Exam ENT Exam: Mucous Membranes Moist, Normal Exam - Neck Exam Neck exam: Positive for: Normal Inspection - Respiratory Exam Respiratory Exam: Wheezes, NORMAL BREATHING PATTERN Additional comments: diffuse wheezing w/ good air entry - Cardiovascular Exam Cardiovascular Exam: REGULAR RHYTHM, RRR, +S1, +S2 - GI/Abdominal Exam GI & Abdominal Exam: Normal Bowel Sounds, Soft. absent: Tenderness - Extremities Exam Extremities exam: Positive for: full ROM, normal capillary refill, normal inspection, pedal pulses present - Back Exam Back exam: FULL ROM, NORMAL INSPECTION - Neurological Exam Neurological exam: Alert, CN II-XII Intact, Normal Gait, Oriented x3, Reflexes Normal - Psychiatric Exam Psychiatric exam: Normal Affect, Normal Mood - Skin Skin Exam: Dry, Intact, Normal Color, Warm Results - Vital Signs Recent Vital Signs: Last Vital Signs Temp 97.9 F 02/12/18 22:35 Pulse 89 02/13/18 06:02 Resp 18 02/13/18 06:02 BP 118/74 02/13/18 05:22 Pulse Ox 100 02/13/18 06:02 - Labs Result Diagrams: 02/12/18 23:30 02/12/18 23:30 Labs: Laboratory Results - last 24 hr 02/12/18 02/12/18 23:30 23:30 WBC 12.9 H RBC 4.97 Hgb 14.7 Hct 43.9 MCV 88.3 MCH 29.6 MCHC 33.5 RDW 13.4 Plt Count 271 MPV 8.1 Neut % (Auto) 74.8 Lymph % (Auto) 17.8 L [place] % (Auto) 5.1 Eos % (Auto) 1.3 Baso % (Auto) 1.0 Neut # (Auto) 9.7 H Lymph # (Auto) 2.3 [place] # (Auto) 0.7 Eos # (Auto) 0.2 Baso # (Auto) 0.1 Sodium 142 Potassium 4.8 Chloride 98 Carbon Dioxide 28 Anion Gap 21 H BUN 8 Creatinine 0.6 L Est GFR ( Amer) > 60 Est GFR (Non-Af Amer) > 60 Random Glucose 132 H Calcium 9.5 Troponin I < 0.0120 NT-Pro-B Natriuret Pep 104 Assessment & Plan (1) Asthma Assessment and Plan: duonebs, prednisone ?? exacerbation w/ bronchitis Status: Acute (2) Bronchitis Assessment and Plan: zithromax prednisone pending final cxr report Status: Acute (3) DVT prophylaxis Assessment and Plan: scd and ae hose ambulation Status: Acute Decision To Admit - Pt Status Changed To: Hospital Disposition Of: Observation - . Bed Request Type: Telemetry Admitting Physician: Roxane Conway
[2018-02-13 09:00] LABS: BASO # 0.2 K/uL (0.0-0.2); BASO % 1.3 % (0.0-2.0); EOS # 0.1 K/uL (0.0-0.7); EOS % 0.7 % (0.0-4.0); LYMPH # 3.2 K/uL (1.0-4.3); LYMPH % 23.2 % (20.0-40.0); MEAN CELL VOLUME 89.1 fl (81.0-99.0); MEAN CORPUSCULAR HEMOGLOBIN 30.1 pg (27.0-31.0); MEAN CORPUSCULAR HGB CONC 33.8 g/dL (33.0-37.0); MONO # 0.8 K/uL (0.0-0.8); MONO % 5.6 % (0.0-10.0); NEUT # 9.5 K/uL (1.8-7.0); NEUT % 69.2 % (50.0-75.0); NRBC % 0.1 % (0.0-0.0); RBC 4.67 Mil/uL (3.80-5.20); RED CELL DISTRIBUTION WIDTH 13.2 % (11.5-14.5); WHITE BLOOD COUNT 13.8 K/uL (4.8-10.8)
[2018-02-13] MEDS ORDERED: Pneumococcal 23-Valent Vaccine IM ONE (09:01)
[2018-02-13 09:10] LABS: ALB/GLOB RATIO 1.4 (1.0-2.1); ALBUMIN 4.1 g/dL (3.5-5.0); ALT/SGPT 30 U/L (9-52); AST/SGOT 19 U/L (14-36); BLOOD UREA NITROGEN 8 mg/dl (7-17); CALCIUM 9.4 mg/dL (8.4-10.2); GFR AFRICAN-AMERICAN > 60; GFR NON-AFRICAN AMERICAN > 60; HDL CHOLESTEROL 40 MG/DL (30-70)
[2018-02-13 09:21] LABS: LDL CHOLESTEROL 116 mg/dL (0-129)
[2018-02-13 09:22] LABS: B-TYPE NATRIURETIC PEPTIDE 118 pg/ml (0-900)
--- NOTE | 2018-02-13 09:22 | RAD ---
HISTORY: sob COMPARISON: Chest radiograph dated 07/22/2017 FINDINGS: LUNGS: No active pulmonary disease. PLEURA: No significant pleural effusion identified, no pneumothorax apparent. CARDIOVASCULAR: Atherosclerotic aortic calcifications. Cardiomediastinal silhouette within normal limits. OSSEOUS STRUCTURES: Unchanged. VISUALIZED UPPER ABDOMEN: Right upper quadrant surgical clips redemonstrated. OTHER FINDINGS: None. IMPRESSION: No active disease.
[2018-02-13] MEDS: Azithromycin 500 MG in Sodium Chloride 0.9% 250 ML IVPB SCH (10:40)
[2018-02-14] MEDS ORDERED: Magnesium Hydroxide Susp 30 ml UD PO PRN (04:59)
[2018-02-14] MEDS ORDERED: Levothyroxine 75 MCG TAB PO SCH (06:30)
--- NOTE | 2018-02-14 07:59 | CP.PCM.PN ---
Subjective - Date & Time of Evaluation Date of Evaluation: 02/14/18 Time of Evaluation: 08:00 - Subjective Subjective: pt doing well. no f/c, n/v/d. off o2. pt was recommended tcu by Phys therapy. pt states that she wishes to go home Objective - Vital Signs/Intake and Output Vital Signs (last 24 hours): Temp Pulse Resp BP Pulse Ox 98.4 F 83 18 116/73 95 02/14/18 04:56 02/14/18 04:56 02/14/18 04:56 02/14/18 04:56 02/14/18 04:56 - Medications Medications: Current Medications Albuterol/Ipratropium (Duoneb 3 Mg/0.5 Mg (3 Ml) Ud) 3 ml INH RQ4 PRN PRN Reason: Shortness of Breath Last Admin: 02/13/18 11:22 Dose: 3 ml Aspirin (Ecotrin) 81 mg PO DAILY [facility] Last Admin: 02/13/18 08:51 Dose: 81 mg Azithromycin 500 mg/ Sodium (Chloride) 250 mls @ 250 mls/hr IVPB DAILY [facility] PRN Reason: Protocol Last Admin: 02/13/18 10:40 Dose: 250 mls/hr Ibuprofen (Motrin Tab) 600 mg PO Q6 PRN PRN Reason: Pain, moderate (4-7) Levothyroxine Sodium (Synthroid) 75 mcg PO DAILY@0630 [facility] Last Admin: 02/14/18 05:32 Dose: 75 mcg Magnesium Hydroxide (Milk Of Magnesia) 30 ml PO DAILY PRN PRN Reason: Constipation Last Admin: 02/14/18 05:06 Dose: 30 ml Prednisone (Prednisone Tab) 50 mg PO DAILY [facility] Last Admin: 02/13/18 10:33 Dose: 50 mg - Labs Labs: 02/13/18 08:20 02/13/18 08:20 - Constitutional Appears: Well, Non-toxic, No Acute Distress - Head Exam Head Exam: ATRAUMATIC, NORMAL INSPECTION, NORMOCEPHALIC - Eye Exam Eye Exam: EOMI, Normal appearance, PERRL Pupil Exam: NORMAL ACCOMODATION, PERRL - ENT Exam ENT Exam: Mucous Membranes Moist, Normal Exam - Neck Exam Neck Exam: Full ROM, Normal Inspection. absent: Lymphadenopathy - Respiratory Exam Respiratory Exam: Clear to Ausculation Bilateral, NORMAL BREATHING PATTERN - Cardiovascular Exam Cardiovascular Exam: REGULAR RHYTHM, RRR, +S1, +S2. absent: Murmur - GI/Abdominal Exam GI & Abdominal Exam: Soft, Normal Bowel Sounds. absent: Tenderness - Extremities Exam Extremities Exam: Full ROM, Normal Capillary Refill, Normal Inspection. absent : Joint Swelling, Pedal Edema - Back Exam Back Exam: NORMAL INSPECTION - Neurological Exam Neurological Exam: Alert, Awake, CN II-XII Intact, Normal Gait, Oriented x3 - Psychiatric Exam Psychiatric exam: Normal Affect, Normal Mood - Skin Skin Exam: Dry, Intact, Normal Color, Warm Assessment and Plan (1) Asthma Status: Acute (2) Bronchitis Status: Acute (3) DVT prophylaxis Status: Acute - Assessment and Plan (Free Text) Assessment: (1) Asthma Assessment and Plan: duonebs, prednisone exacerbation w/ bronchitis Status: Acute (2) Bronchitis Assessment and Plan: zithromax prednisone pending final cxr report-negative doing much better today, off o2 Status: Acute (3) DVT prophylaxis Assessment and Plan: scd and ae hose ambulation Status: Acute pt was on [facility]CUhold for falls. pt states that she wants to go home and has a home physical therapist. will dc this am. f/u rmg in am
--- NOTE | 2018-02-14 08:20 | CP.PCM.CON ---
History of Present Illness - History of Present Illness History of Present Illness: Patient is a 77 year old female with HIV, HTN, hypercholesterolemia who presents with dyspnea. The patient states she developed dyspnea at rest. She denies chest pain. She wants to go home. Review of Systems - Constitutional Constitutional: absent: As Per HPI, Anorexia, Chills, Daytime Sleepiness, Excessive Sweating, Fatigue, Fever, Frequent Falls, Headache, Increased Appetite , Lethargy, Malaise, Night Sweats, Snoring, Sleep Apnea, Weight Gain, Weight Loss, Weakness, Other - EENT Eyes: absent: As Per HPI, Blind Spots, Blurred Vision, Change in Vision, Decreased Night Vision, Diplopia, Discharge, Dry Eye, Exophthalmos, Floaters, Irritation, Itchy Eyes, Loss of Peripheral Vision, Pain, Photophobia, Requires Corrective Lenses, Sees Flashes, Spots in Vision, Tunnel Vision, Other Visual Disturbances, Loss of Vision, Other Ears: absent: As Per HPI, Decreased Hearing, Ear Discharge, Ear Pain, Tinnitus, Abnormal Hearing, Disequilibrium, Dizziness, Other Nose/Mouth/Throat: absent: As Per HPI, Epistaxis, Nasal Congestion, Nasal Discharge, Nasal Obstruction, Nasal Trauma, Nose Pain, Post Nasal Drip, Sinus Pain, Sinus Pressure, Bleeding Gums, Change in Voice, Dental Pain, Dry Mouth, Dysphagia, Halitosis, Hoarsness, Lip Swelling, Mouth Lesions, Mouth Pain, Odynophagia, Sore Throat, Throat Swelling, Tongue Swelling, Facial Pain, Neck Pain, Neck Mass, Other - Cardiovascular Cardiovascular: absent: As Per HPI, Acrocyanosis, Chest Pain, Chest Pain at Rest , Chest Pain with Activity, Claudication, Diaphoresis, Dyspnea, Dyspnea on Exertion, Edema, Irregular Heart Rhythm, Pain Radiating to Arm/Neck/Jaw, Leg Edema, Leg Ulcers, Lightheadedness, Orthopnea, Palpitations, Paroxysmal Nocturnal Dyspnea, Pedal Edema, Radiating Pain, Rapid Heart Rate, Slow Heart Rate, Syncope, Other - Respiratory Respiratory: absent: As Per HPI, Cough, Dyspnea, Hemoptysis, Dyspnea on Exertion , Wheezing, Snoring, Stridor, Pain on Inspiration, Chest Congestion, Excessive Mucous Production, Change in Mucous Color, Pain with Coughing, Other - Gastrointestinal Gastrointestinal: absent: As Per HPI, Abdominal Pain, Belching, Bloating, Change in Bowel Habits, Change in Stool Character, Coffee Ground Emesis, Constipation, Cramping, Diarrhea, Dyspepsia, Dysphagia, Early Satiety, Excessive Flatus, Fecal Incontinence, Heartburn, Hematemesis, Hematochezia, Loose Stools, Melena, Nausea, Odynophagia, Temesmus, Vomiting, Other - Musculoskeletal Musculoskeletal: absent: As Per HPI, Abnormal Gait, Arthralgias, Atrophy, Back Pain, Deformity, Joint Swelling, Limited Range of Motion, Loss of Height, Muscle Cramps, Muscle Weakness, Myalgias, Neck Pain, Numbness, Radiating Pain into Limb, Stiffness, Tingling, Other - Integumentary Integumentary: absent: As Per HPI, Acne, Alopecia, Bleeding Lesions, Change in Hair, Change in Nails, Change in Pigmentation, Changing Lesions, Dry Skin, Erythema, Furuncle, Hirsutism, Lesions, New Lesions, Non-Healing Lesions, Photosensitivity, Pruritus, Rash, Skin Pain, Skin Ulcer, Sores, Striae, Swelling , Unusual Bruising, Wounds, Jaundice, Other - Neurological Neurological: absent: As Per HPI, Abnormal Gait, Abnormal Hearing, Abnormal Movements, Abnormal Speech, Behavioral Changes, Burning Sensations, Confusion, Convulsions, Disequilibrium, Dizziness, Numbness, Focal Weakness, Frequent Falls , Headaches, Lack of Coordination, Loss of Vision, Memory Loss, Paresthesias, Radicular Pain, Restless Legs, Sensory Deficit, Syncope, Tingling, Tremor, Vertigo, Weakness, Other Visual Disturbances, Other - Psychiatric Psychiatric: absent: As Per HPI, Abnormal Sleep Pattern, Anhedonia, Anxiety, Auditory Hallucinations, Behavioral Changes, Change in Appetite, Change in Libido, Confusion, Depression, Difficulty Concentrating, Hallucinations, Homicidal Ideation, Hopelessness, Irritability, Memory Loss, Mood Swings, Panic Attacks, Paranoia, Suicidal Ideation, Visual Hallucinations, Tactile Hallucinations, Other - Endocrine Endocrine: absent: As Per HPI, Change in Body Appearance, Change in Libido, Cold Intolorance, Deepening of Voice, Excessive Sweating, Fatigue, Flushing, Heat Intolorance, Increase in Ring/Shoe/Hat Size, Palpitations, Polydipsia, Polyphagia, Polyuria, Other - Hematologic/Lymphatic Hematologic: absent: As Per HPI, Easy Bleeding, Easy Bruising, Lymphadenopathy, Other Past Patient History - Past Medical History & Family History Past Medical History?: Yes - Past Social History Smoking Status: Never Smoked - CARDIAC Hx Hypercholesterolemia: Yes - PULMONARY Hx Respiratory Disorders: No - NEUROLOGICAL Hx Neurological Disorder: No - HEENT Hx Deafness: Yes (Left side) - RENAL Hx Chronic Kidney Disease: No - ENDOCRINE/METABOLIC Hx Hypothyroidism: Yes - HEMATOLOGICAL/ONCOLOGICAL Hx AIDS: No Hx Human Immunodeficiency Virus (HIV): No - INTEGUMENTARY Hx Dermatological Problems: No - MUSCULOSKELETAL/RHEUMATOLOGICAL Hx Musculoskeletal Disorders: Yes Hx Falls: Yes - GASTROINTESTINAL Hx Gastrointestinal Disorders: No - GENITOURINARY/GYNECOLOGICAL Hx Genitourinary Disorders: No - PSYCHIATRIC Hx Psychophysiologic Disorder: No Hx Substance Use: No - SURGICAL HISTORY Hx Surgeries: Yes Other/Comment: Brain tumor removal in 1985 - ANESTHESIA Hx Anesthesia: Yes Hx Anesthesia Reactions: No Hx Malignant Hyperthermia: No Meds Home Medications: Home Medication List Medication Instructions Recorded Confirmed Type Albuterol Sulfate [Ventolin Hfa] 1 puff IH Q4 PRN #1 unit 02/14/18 Rx Azithromycin [Zithromax] 250 mg PO DAILY #3 tab 02/14/18 Rx Promethazine DM [Phenergan DM 5 ml PO Q6 PRN #250 ml 02/14/18 Rx Syrup] predniSONE [predniSONE Tab] 50 mg PO DAILY #3 tab 02/14/18 Rx Allergies/Adverse Reactions: Allergies Allergy/AdvReac Type Severity Reaction Status Date / Time banana Allergy RASH Verified 02/12/18 22:35 Penicillins Allergy RASH Verified 02/12/18 22:35 - Medications Medications: Current Medications Albuterol/Ipratropium (Duoneb 3 Mg/0.5 Mg (3 Ml) Ud) 3 ml INH RQ4 PRN PRN Reason: Shortness of Breath Last Admin: 02/13/18 11:22 Dose: 3 ml Aspirin (Ecotrin) 81 mg PO DAILY [facility] Last Admin: 02/13/18 08:51 Dose: 81 mg Azithromycin 500 mg/ Sodium (Chloride) 250 mls @ 250 mls/hr IVPB DAILY [facility] PRN Reason: Protocol Last Admin: 02/13/18 10:40 Dose: 250 mls/hr Ibuprofen (Motrin Tab) 600 mg PO Q6 PRN PRN Reason: Pain, moderate (4-7) Levothyroxine Sodium (Synthroid) 75 mcg PO DAILY@0630 [facility] Last Admin: 02/14/18 05:32 Dose: 75 mcg Magnesium Hydroxide (Milk Of Magnesia) 30 ml PO DAILY PRN PRN Reason: Constipation Last Admin: 02/14/18 05:06 Dose: 30 ml Prednisone (Prednisone Tab) 50 mg PO DAILY [facility] Last Admin: 02/13/18 10:33 Dose: 50 mg Physical Exam - Constitutional Appears: Non-toxic - Head Exam Head Exam: NORMAL INSPECTION - Eye Exam Eye Exam: Normal appearance - ENT Exam ENT Exam: Mucous Membranes Moist - Neck Exam Neck exam: Positive for: Normal Inspection - Respiratory Exam Respiratory Exam: NORMAL BREATHING PATTERN - Cardiovascular Exam Cardiovascular Exam: REGULAR RHYTHM - GI/Abdominal Exam GI & Abdominal Exam: Normal Bowel Sounds - Rectal Exam Rectal Exam: Deferred - Extremities Exam Extremities exam: Positive for: pedal edema - Back Exam Back exam: NORMAL INSPECTION - Neurological Exam Neurological exam: Alert, Oriented x3 - Psychiatric Exam Psychiatric exam: Normal Affect - Skin Skin Exam: Normal Color Results - Vital Signs Recent Vital Signs: Last Vital Signs Temp 98.2 F 02/14/18 08:04 Pulse 79 02/14/18 08:04 Resp 20 02/14/18 08:04 BP 115/68 02/14/18 08:04 Pulse Ox 94 L 02/14/18 08:04 - Labs Result Diagrams: 02/13/18 08:20 02/13/18 08:20 Labs: Laboratory Results - last 24 hr 02/13/18 02/13/18 02/13/18 08:20 08:20 15:25 WBC 13.8 H RBC 4.67 Hgb 14.0 Hct 41.6 MCV 89.1 MCH 30.1 MCHC 33.8 RDW 13.2 Plt Count 311 MPV 9.0 Neut % (Auto) 69.2 Lymph % (Auto) 23.2 [place] % (Auto) 5.6 Eos % (Auto) 0.7 Baso % (Auto) 1.3 Neut # (Auto) 9.5 H Lymph # (Auto) 3.2 [place] # (Auto) 0.8 Eos # (Auto) 0.1 Baso # (Auto) 0.2 Sodium 139 Potassium 4.7 Chloride 97 L Carbon Dioxide 29 Anion Gap 18 BUN 8 Creatinine 0.6 L Est GFR ( Amer) > 60 Est GFR (Non-Af Amer) > 60 Random Glucose 106 H Calcium 9.4 Total Bilirubin 1.2 AST 19 ALT 30 Alkaline Phosphatase 79 Troponin I < 0.0120 < 0.0120 NT-Pro-B Natriuret Pep 118 Total Protein 7.1 Albumin 4.1 Globulin 3.0 Albumin/Globulin Ratio 1.4 Triglycerides 124 Cholesterol 186 LDL Cholesterol Direct 116 HDL Cholesterol 40 TSH 3rd Generation 1.05 - EKG Data EKG Interpreted by: Myself EKG shows normal: Sinus rhythm Assessment & Plan (1) Dyspnea Assessment and Plan: patient has ruled out for myocardial infarction. recommend continued medical therapy. recommend discharge to home. Status: Acute
[2018-02-14] MEDS: Azithromycin 500 MG in Sodium Chloride 0.9% 250 ML IVPB SCH (09:03)
[2018-02-14 12:18] VITALS: BP 147/87; PULSE 70; RESP 18; TEMP 97.6
--- NOTE | 2018-02-14 13:15 | CP.PCM.DIS ---
Provider - Provider Date of Admission: 02/13/18 18:10 Attending physician: Roxane Conway MD Time Spent in preparation of Discharge (in minutes): 15 Diagnosis - Discharge Diagnosis (1) Asthma Status: Acute (2) Bronchitis Status: Acute (3) DVT prophylaxis Status: Acute Hospital Course - Lab Results Lab Results: Most Recent Lab Values WBC 13.8 K/uL (4.8-10.8) H 02/13/18 08:20 RBC 4.67 Mil/uL (3.80-5.20) 02/13/18 08:20 Hgb 14.0 g/dL (12.0-16.0) 02/13/18 08:20 Hct 41.6 % (34.0-47.0) 02/13/18 08:20 MCV 89.1 fl (81.0-99.0) 02/13/18 08:20 MCH 30.1 pg (27.0-31.0) 02/13/18 08:20 MCHC 33.8 g/dL (33.0-37.0) 02/13/18 08:20 RDW 13.2 % (11.5-14.5) 02/13/18 08:20 Plt Count 311 K/uL (130-400) 02/13/18 08:20 MPV 9.0 fl (7.2-11.7) 02/13/18 08:20 Neut % (Auto) 69.2 % (50.0-75.0) 02/13/18 08:20 Lymph % (Auto) 23.2 % (20.0-40.0) 02/13/18 08:20 [place] % (Auto) 5.6 % (0.0-10.0) 02/13/18 08:20 Eos % (Auto) 0.7 % (0.0-4.0) 02/13/18 08:20 Baso % (Auto) 1.3 % (0.0-2.0) 02/13/18 08:20 Neut # (Auto) 9.5 K/uL (1.8-7.0) H 02/13/18 08:20 Lymph # (Auto) 3.2 K/uL (1.0-4.3) 02/13/18 08:20 [place] # (Auto) 0.8 K/uL (0.0-0.8) 02/13/18 08:20 Eos # (Auto) 0.1 K/uL (0.0-0.7) 02/13/18 08:20 Baso # (Auto) 0.2 K/uL (0.0-0.2) 02/13/18 08:20 Sodium 139 mmol/l (132-148) 02/13/18 08:20 Potassium 4.7 MMOL/L (3.6-5.0) 02/13/18 08:20 Chloride 97 mmol/L (98-107) L 02/13/18 08:20 Carbon Dioxide 29 mmol/L (22-30) 02/13/18 08:20 Anion Gap 18 (10-20) 02/13/18 08:20 BUN 8 mg/dl (7-17) 02/13/18 08:20 Creatinine 0.6 mg/dl (0.7-1.2) L 02/13/18 08:20 Est GFR ( Amer) > 60 02/13/18 08:20 Est GFR (Non-Af Amer) > 60 02/13/18 08:20 Random Glucose 106 mg/dL (65-105) H 02/13/18 08:20 Calcium 9.4 mg/dL (8.4-10.2) 02/13/18 08:20 Total Bilirubin 1.2 mg/dl (0.2-1.3) 02/13/18 08:20 AST 19 U/L (14-36) 02/13/18 08:20 ALT 30 U/L (9-52) 02/13/18 08:20 Alkaline Phosphatase 79 U/L (38-126) 02/13/18 08:20 Troponin I < 0.0120 ng/mL (0.00-0.120) 02/13/18 15:25 NT-Pro-B Natriuret Pep 118 pg/ml (0-900) 02/13/18 08:20 Total Protein 7.1 G/DL (6.3-8.2) 02/13/18 08:20 Albumin 4.1 g/dL (3.5-5.0) 02/13/18 08:20 Globulin 3.0 gm/dL (2.2-3.9) 02/13/18 08:20 Albumin/Globulin Ratio 1.4 (1.0-2.1) 02/13/18 08:20 Triglycerides 124 mg/DL (0-149) 02/13/18 08:20 Cholesterol 186 mg/dL (0-199) 02/13/18 08:20 LDL Cholesterol Direct 116 mg/dL (0-129) 02/13/18 08:20 HDL Cholesterol 40 MG/DL (30-70) 02/13/18 08:20 TSH 3rd Generation 1.05 mIU/ML (0.46-4.68) 02/13/18 08:20 - Hospital Course Hospital Course: cardio, bw, imaging, pt/ot eval Discharge Exam - Head Exam Head Exam: NORMAL INSPECTION Discharge Plan - Discharge Medications Prescriptions: Albuterol Sulfate [Ventolin Hfa] 1 puff IH Q4 PRN #1 unit PRN Reason: sob Azithromycin [Zithromax] 250 mg PO DAILY #3 tab predniSONE [predniSONE Tab] 50 mg PO DAILY #3 tab Promethazine DM [Phenergan DM Syrup] 5 ml PO Q6 PRN #250 ml PRN Reason: Cough - Follow Up Plan Condition: FAIR Disposition: HOME/ ROUTINE Additional Instructions: f/u rmg in am, rted prn, meds per med rec, final dx bronchitis, asthma exacerbation. pt has home physical therapy. meds e-rx
[2018-02-15 20:59] VITALS: O2SAT 100
== END 2018-02-14 13:09 | disposition home or self-care (01) | DRG 203 ==
LOC: H.ER 22:29 → H.ERHOLD 02-13 01:34 → H.TEL 02-13 05:35 → OBSVTOIN 02-13 18:10
PROVIDERS: ADMIT Family Medicine; ATTEND Family Medicine
DX: J45.901 Unspecified asthma with (acute) exacerbation (principal); E78.00 Pure hypercholesterolemia, unspecified; E03.9 Hypothyroidism, unspecified; Z21 Asymptomatic human immunodeficiency virus [HIV] infection status; J20.9 Acute bronchitis, unspecified; I10 Essential (primary) hypertension; H91.92 Unspecified hearing loss, left ear; Z79.82 Long term (current) use of aspirin; Z86.73 Personal history of transient ischemic attack (TIA), and cerebral infarction without residual deficits